=== PATIENT | female | born 2005 | race African-American/Black ===

== ENCOUNTER 2023-03-11 08:00 | Outpatient (RCR) | payer MEDICAID ==
[2023-03-06 15:58] VITALS: BP 95/56; PULSE 122; TEMP 98.5
[2023-03-08 08:20] VITALS: BP 95/59; PULSE 141; TEMP 98
[2023-03-08 10:18] VITALS: BP 108/74; PULSE 110; TEMP 97.5
[2023-03-08 11:12] VITALS: BP 107/75; PULSE 117
[~2023-03-11] VITALS: Ht 152.4 cm; Wt 48.0 kg
[~2023-03-11 08:00] MED LIST: Iron Sucrose 300 MG in NS 250 ML Over 90 Minutes IV ONE; LR 500 ML IV SCH; PHENERGAN 25 TA25 MG PO
[2023-03-11] MEDS ORDERED: Iron Sucrose 300 MG in NS 250 ML Over 90 Minutes IV ONE (08:30)
[2023-03-11 08:37] VITALS: BP 103/68; PULSE 127; TEMP 97.9
== END 2023-03-11 10:55 ==
LOC: EUO 08:00
DX: O99.019 Anemia complicating pregnancy, unspecified trimester (principal); Z3A.00 Weeks of gestation of pregnancy not specified
CPT/HCPCS: J1756; J7050; J7120

== ENCOUNTER 2023-05-12 22:39 | Emergency (ER) | payer MEDICAID ==
[~2023-05-12] VITALS: Ht 152.4 cm; Wt 47.7 kg
[~2023-05-12 22:39] MED LIST changes: +IBU600 MG PO; -Iron Sucrose 300 MG in NS 250 ML Over 90 Minutes IV ONE; -LR 500 ML IV SCH; +TYLENOL 500MG500 MG PO
[2023-05-12] MEDS ORDERED: Ondansetron 4 MG/2 ML VIAL IV PRN (23:15)
[2023-05-12] MEDS ORDERED: NS 1,000 ML IV ONE (23:15)
[2023-05-12] MEDS ORDERED: Ketorolac 15 MG/ML VIAL IV ONE (23:15)
[2023-05-12 23:35] LABS: COLLECTION METHOD CLEAN CATCH
[2023-05-12] MEDS ORDERED: Azithromycin 250 MG TAB PO ONE (23:45)
[2023-05-12 23:52] LABS: ALBUMIN 1.9 gm/dL (3.5-5.0); BILIRUBIN,TOTAL 0.9 mg/dL (0.2-1.2); CALCIUM 8.4 mg/dL (8.4-10.2); CREATININE, serum 2.06 mg/dL (0.57-1.11); POTASSIUM 3.2 mmol/L (3.5-4.5); TOTAL PROTEIN 5.6 gm/dL (6.2-8.1)
[2023-05-12 23:58] LABS: PH 5.5 (5.0-8.5); URINE APPEARANCE TURBID (CLEAR/HAZY); URINE BLOOD 3+ (NEGATIVE); URINE COLOR YELLOW (YELLOW); URINE GLUCOSE NEGATIVE (NEGATIVE); URINE KETONE NEGATIVE (NEGATIVE); URINE NITRATE NEGATIVE (NEGATIVE); URINE PROTEIN(semi-quant) 1+ (NEGATIVE)
[2023-05-13 00:04] LABS: HEMATOCRIT 27.5 % (35.0-45.0); HEMOGLOBIN 9.2 g/dl (12.0-15.0); MEAN CELL VOLUME 66 fl (80.0-95.0); MEAN CORPUSCULAR HEMOGLOBIN 22 pg (26-32); MEAN CORPUSCULAR HGB CONC 34 g/dl (33.0-37.0); PLATELET COUNT 53 K/mm3 (130-400); RED BLOOD COUNT 4.19 M/mm3 (4.10-5.30); REDCELL DISTRIBUTION WIDTH-CV 22.2 % (11.5-14.5)
[2023-05-13] MEDS ORDERED: NS 1,000 ML IV ONE ×2 (00:15→02:00)
[2023-05-13] MEDS ORDERED: cefTRIAXone 1 G in Water For Injection,Sterile 10 ML IV ONE (00:45)
[2023-05-13] MEDS ORDERED: CEPHALEXIN500 M1 PO (01:42)
[2023-05-13] MEDS ORDERED: Acetaminophen 500 MG TAB PO ONE (01:45)
[2023-05-13 02:02] LABS: ANISOCYTOSIS 3+; BAND 8 % (0-10); LYMPHOCYTE 22 % (20.0-51.0); NEUTROPHILS 68 % (42.0-75.2); PLATELET ESTIMATE DECREASED (NORMAL)
[2023-05-13 02:03] LABS: BURR CELLS 2+; HYPOCHROMIA 2+; MICROCYTOSIS 2+; OVALOCYTES 1+
[2023-05-13 03:31] LABS: INR 1.3 (0.8-3.0); PROTHROMBIN TIME 13.6 SECONDS (9.7-12.8)
[2023-05-13] MEDS ORDERED: Potassium Bicarbonate/Citrate 20 MEQ Effervescent TAB PO SCH (05:00)
[2023-05-13] MEDS ORDERED: *Potassium Replacement Protocol MC SCH (05:00)
[2023-05-13 06:51] VITALS: TEMP 98.2
[2023-05-13 07:08] VITALS: BP 95/67; PULSE 125
== END 2023-05-13 07:08 | disposition home or self-care (01) ==
LOC: COL.ER 22:39
PROVIDERS: Nurse Practitioner Family; Personal Emergency Response Attendant
DX: O86.20 Urinary tract infection following delivery, unspecified (principal); O90.89 Other complications of the puerperium, not elsewhere classified; O72.3 Postpartum coagulation defects; O90.81 Anemia of the puerperium; N28.9 Disorder of kidney and ureter, unspecified
CPT/HCPCS: J0696; J1885; J2405; J7030